=== PATIENT | male | born 1965 | race Caucasian/White ===

== ENCOUNTER → 2016-11-03 | Outpatient (CLI) | payer OTHER ==
--- NOTE | 2016-11-03 10:56 | RAD ---
Exam performed: Cervical spine 2 views. Indication: Neck pain with right-sided radiculopathy for 2 months Date of Service: 11/03/16. No prior Two views cervical spine findings: AP, lateral and open-mouth views of the cervical spine are obtained. Normal sagittal alignment is preserved. C1-C5 are seen. There is no acute fracture or dislocation. No mahesh or retrolisthesis seen. No prevertebral soft tissue swelling. The visualized odontoid process is unremarkable. The visualized lung apices are clear. Impression: No acute findings seen in the cervical spine.
== END | disposition home or self-care (01) ==
LOC: DXRADRC 09:01
PROVIDERS: ATTEND Psychiatry & Neurology Neurology
DX: M54.2 Cervicalgia (principal)
CPT/HCPCS: 72050